=== PATIENT | male | born 1965 | race Caucasian/White ===

== ENCOUNTER 2020-10-13 10:52 | Emergency (ER) | payer BC ==
--- NOTE | 2020-10-13 10:54 | ERPHSYRPT ---
- History of Present Illness Time Seen by Provider: 10/13/20 10:54 Source: patient Exam Limitations: no limitations Physician History: This is a 55-year-old white male who has had symptoms of shortness of breath cough and headache for approximately 2 weeks. He tested positive for COVID-19 approximately 1 week ago and he continues to have a mild cough, moderate headach e and moderate shortness of breath. He had a pulse oximeter on at home and at night he is tended to drop down into the high 70s to low 80s but it probably returned to approximately 95 to 96% on room air at rest. Patient denies chest pain. He denies nausea vomiting or diarrhea. He is concerned because his symptoms are not improving. Timing/Duration: week(s) (two) Severity of Dyspnea-Max: moderate Severity of Dyspnea-Current: moderate Possible Cause: no prior episodes Modifying Factors: Improves With: activity, coughing, exertion Associated Symptoms: cough Travel Risk - International Travel Have you traveled outside of the country in past 3 weeks: No - Coronavirus Screening Are you exhibiting any of the following symptoms?: Yes Symptoms: Cough: New Onset, Shortness of Breath, Headaches/Body Aches/Fatigue Close contact with a COVID-19 positive Pt in past 14-21 Days: Yes - Review of Systems Constitutional: No Symptoms Eyes: No Symptoms Ears, Nose, & Throat: No Symptoms Respiratory: Cough, Dyspnea Cardiac: No Symptoms Abdominal/Gastrointestinal: No Symptoms Genitourinary Symptoms: No Symptoms Musculoskeletal: No Symptoms Skin: No Symptoms Neurological: Headache Psychological: No Symptoms Endocrine: No Symptoms Hematologic/Lymphatic: No Symptoms Immunological/Allergic: No Symptoms All Other Systems: Reviewed and Negative - Past Medical History Pertinent Past Medical History: Yes Neurological History: No Pertinent History ENT History: No Pertinent History Cardiac History: No Pertinent History Respiratory History: No Pertinent History Endocrine Medical History: No Pertinent History Musculoskeletal History: No Pertinent History GI Medical History: No Pertinent History History: No Pertinent History Psycho-Social History: No Pertinent History Male Reproductive Disorders: No Pertinent History - Past Surgical History Past Surgical History: No Neuro Surgical History: No Pertinent History Cardiac: No Pertinent History Respiratory: No Pertinent History Gastrointestinal: No Pertinent History Genitourinary: No Pertinent History Musculoskeletal: No Pertinent History Male Surgical History: No Pertinent History - Nursing Vital Signs Nursing Vital Signs: Initial Vital Signs Pulse Rate 93 H 10/13/20 12:13 Respiratory Rate 18 10/13/20 12:13 Blood Pressure 132/87 10/13/20 12:13 O2 Sat by Pulse Oximetry 94 L 10/13/20 12:13 Pain Scale Pain Intensity 0 - Physical Exam General Appearance: mild distress, alert, anxiety Eye Exam: PERRL/EOMI, eyes nml inspection Ears, Nose, Throat Exam: hearing grossly normal, normal ENT inspection Neck Exam: normal inspection, non-tender, supple, full range of motion Respiratory Exam: normal breath sounds, lungs clear, respiratory distress (Mild), airway intact, No chest tenderness Cardiovascular/Chest Exam: normal heart sounds, regular rate/rhythm, normal peripheral pulses Abdominal/Gastrointestinal Exam: soft, normal bowel sounds, No tenderness Rectal Exam: not done Extremity Exam: non-tender, normal range of motion, normal inspection, normal capillary refill, no calf tenderness, no pedal edema, pelvis stable Neurologic Exam: alert, oriented x 3, cooperative, 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, normal mood/affect, nml cerebellar function, nml station & gait, sensation nml Skin Exam: normal color, warm, dry Lymphatic Exam: No adenopathy SpO2 Interpretation: normal O2 Delivery: Room Air - Course Nursing assessment & vital signs reviewed: Yes EKG Interpreted by Me: RATE (101), Sinus Tach, NORMAL AXIS, NORMAL INTERVALS, NORMAL QRS, NORMAL ST-T Ordered Tests: Active Orders 24 hr Category Date Time Status Keno Clerk STAT Care 10/13/20 11:10 Active EKG-ER Only STAT Care 10/13/20 11:09 Active IV Insertion STAT Care 10/13/20 11:09 Active Isolation, Initiate & Maintain STAT Care 10/13/20 11:10 Active Pulse Oximetry (ED) STAT Care 10/13/20 11:09 Active CHEST 1 VIEW (PORTABLE) Stat Exams 10/13/20 11:09 Completed CHEST WITH CONTRAST [CT] Stat Exams 10/13/20 12:48 Completed CBC W DIFF Routine Lab 10/13/20 11:30 Completed CMP Routine Lab 10/13/20 11:30 Completed D-DIMER QUANTITATIVE Stat Lab 10/13/20 12:24 Completed Ferritin Stat Lab 10/13/20 Completed INFLUENZA A+B KARY Stat Lab 10/13/20 11:09 Completed LDH-LACTATE DEHYDROGENASE Routine Lab 10/13/20 11:30 Completed Lactic Acid Stat Lab 10/13/20 11:09 Completed MAGNESIUM Routine Lab 10/13/20 11:30 Completed Manual Differential NC Routine Lab 10/13/20 11:30 Completed Camas Screen Stat Lab 10/13/20 Completed TROPONIN Q3H Lab 10/13/20 11:30 Completed TROPONIN Q3H Lab 10/13/20 15:30 Ordered TROPONIN Q3H Lab 10/13/20 18:30 Ordered TROPONIN Q3H Lab 10/13/20 21:30 Ordered TROPONIN Q3H Lab 10/14/20 00:30 Ordered UA W/RFX UR CULTURE Stat Lab 10/13/20 14:05 Completed Medication Summary Generic Name Dose Route Start Last Admin Trade Name Freq PRN Reason Stop Dose Admin Sodium Chloride 1,000 mls @ 100 mls/hr 10/13/20 11:15 10/13/20 11:32 Sodium Chloride 0.9% 1000 Ml IV 11/12/20 11:14 100 mls/hr .Q10H SAQIB Administration Discontinued Medications Generic Name Dose Route Start Last Admin Trade Name Freq PRN Reason Stop Dose Admin Hydrocodone Bitart/Acetaminophen 15 ml 10/13/20 11:13 10/13/20 11:32 Hydrocodone-Acetamin 2.5-108/5 Ml Solution PO 10/13/20 11:14 15 ml STAT STA Administration Hydrocodone Bitart/Acetaminophen Confirm 10/13/20 11:27 Hydrocodone-Acetamin 2.5-108/5 Ml Solution Administered 10/13/20 11:28 Dose 15 ml .ROUTE .STK-MED ONE Dexamethasone Sodium Phosphate 8 mg 10/13/20 11:12 10/13/20 11:32 Decadron 4 Mg Inj IV 10/13/20 11:13 8 mg STAT ONE Administration Dexamethasone Sodium Phosphate Confirm 10/13/20 11:27 Decadron 10mg Inj. Administered 10/13/20 11:28 Dose 10 mg .ROUTE .STK-MED ONE Lab/Rad Data: Laboratory Result Diagrams 10/13/20 11:30 10/13/20 11:30 Laboratory Results 10/13/20 10/13/20 10/13/20 Range/Units Unknown Unknown 14:05 WBC (4.0-10.5) K/mm3 RBC (4.1-5.6) M/mm3 Hgb (12.5-18.0) gm/dl Hct (42-50) % MCV (78-100) fl MCH (26-32) pg MCHC (32-36) g/dl RDW (11.5-14.0) % Plt Count (150-450) K/mm3 MPV (7.5-11.0) fl Absolute Granulocytes (1.4-6.9) Segmented Neutrophils (36.-66.) % Lymphocytes (Manual) (24-44) % Monocytes (Manual) (0.0-12.0) % Eosinophils (Manual) (0.00-3.0) % Platelet Estimate (NORMAL) RBC Morphology D-Dimer (215-500) ng/mL Sodium (137-145) mmol/L Potassium (3.5-5.1) mmol/L Chloride (98-107) mmol/L Carbon Dioxide (22-30) mmol/L Anion Gap (5-15) MEQ/L BUN (9-20) mg/dL Creatinine (0.66-1.25) mg/dL Estimated GFR ML/MIN Glucose (74-106) mg/dL Lactic Acid (0.4-2.0) Calcium (8.4-10.2) mg/dL Magnesium (1.6-2.3) mg/dL Ferritin 721 H (17.9-464) ng/mL Total Bilirubin (0.2-1.3) mg/dL AST (17-59) U/L ALT (0-50) U/L Alkaline Phosphatase (38-126) U/L Lactate Dehydrogenase (120-246) U/L Troponin I (0.000-0.034) ng/mL Serum Total Protein (6.3-8.2) g/dL Albumin (3.5-5.0) g/dL Urine Color YELLOW (YELLOW) Urine Appearance CLEAR (CLEAR) Urine pH 5.0 (5-6) Ur Specific [place] 1.044 (1.005-1.025) Urine Protein 100 (Negative) Urine Ketones TRACE (NEGATIVE) Urine Blood NEGATIVE (0-5) [place]/ul Urine Nitrite NEGATIVE (NEGATIVE) Urine Bilirubin NEGATIVE (NEGATIVE) Urine Urobilinogen 2 (0-1) mg/dL Ur Leukocyte Esterase NEGATIVE (NEGATIVE) Urine WBC (Auto) NONE (0-5) /HPF Urine RBC (Auto) NONE (0-2) /HPF U Epithel Cells (Auto) NONE (FEW) /HPF Urine Bacteria (Auto) NONE (NEGATIVE) /HPF Urine Mucus (Auto) SLIGHT (NEGATIVE) /HPF Urine Culture Reflexed NO (NO) Urine Glucose >=500 (NEGATIVE) mg/dL Monoscreen NEGATIVE (Negative) Influenza Type A Ag (NEGATIVE) Influenza Type B Ag (NEGATIVE) Group A Strep Antibody (NEGATIVE) 10/13/20 10/13/20 10/13/20 Range/Units 12:24 11:30 11:30 WBC (4.0-10.5) K/mm3 RBC (4.1-5.6) M/mm3 Hgb (12.5-18.0) gm/dl Hct (42-50) % MCV (78-100) fl MCH (26-32) pg MCHC (32-36) g/dl RDW (11.5-14.0) % Plt Count (150-450) K/mm3 MPV (7.5-11.0) fl Absolute Granulocytes (1.4-6.9) Segmented Neutrophils (36.-66.) % Lymphocytes (Manual) (24-44) % Monocytes (Manual) (0.0-12.0) % Eosinophils (Manual) (0.00-3.0) % Platelet Estimate (NORMAL) RBC Morphology D-Dimer 785 H* (215-500) ng/mL Sodium 134 L (137-145) mmol/L Potassium 4.0 (3.5-5.1) mmol/L Chloride 101 (98-107) mmol/L Carbon Dioxide 26 (22-30) mmol/L Anion Gap 10.4 (5-15) MEQ/L BUN 13 (9-20) mg/dL Creatinine 0.56 L (0.66-1.25) mg/dL Estimated GFR > 60.0 ML/MIN Glucose 331 H (74-106) mg/dL Lactic Acid (0.4-2.0) Calcium 10.1 (8.4-10.2) mg/dL Magnesium 2.1 (1.6-2.3) mg/dL Ferritin (17.9-464) ng/mL Total Bilirubin 0.70 (0.2-1.3) mg/dL AST 34 (17-59) U/L ALT 55 H (0-50) U/L Alkaline Phosphatase 95 (38-126) U/L Lactate Dehydrogenase 199 (120-246) U/L Troponin I < 0.012 (0.000-0.034) ng/mL Serum Total Protein 8.1 (6.3-8.2) g/dL Albumin 4.0 (3.5-5.0) g/dL Urine Color (YELLOW) Urine Appearance (CLEAR) Urine pH (5-6) Ur Specific [place] (1.005-1.025) Urine Protein (Negative) Urine Ketones (NEGATIVE) Urine Blood (0-5) Cal[place]/ul Urine Nitrite (NEGATIVE) Urine Bilirubin (NEGATIVE) Urine Urobilinogen (0-1) mg/dL Ur Leukocyte Esterase (NEGATIVE) Urine WBC (Auto) (0-5) /HPF Urine RBC (Auto) (0-2) /HPF U Epithel Cells (Auto) (FEW) /HPF Urine Bacteria (Auto) (NEGATIVE) /HPF Urine Mucus (Auto) (NEGATIVE) /HPF Urine Culture Reflexed (NO) Urine Glucose (NEGATIVE) mg/dL Monoscreen (Negative) Influenza Type A Ag (NEGATIVE) Influenza Type B Ag (NEGATIVE) Group A Strep Antibody (NEGATIVE) 10/13/20 10/13/20 10/13/20 Range/Units 11:30 11:11 11:09 WBC 8.9 (4.0-10.5) K/mm3 RBC 4.63 (4.1-5.6) M/mm3 Hgb 14.4 (12.5-18.0) gm/dl Hct 42.0 (42-50) % MCV 90.7 (78-100) fl MCH 31.1 (26-32) pg MCHC 34.3 (32-36) g/dl RDW 11.5 (11.5-14.0) % Plt Count 325 (150-450) K/mm3 MPV 9.1 (7.5-11.0) fl Absolute Granulocytes 6.15 (1.4-6.9) Segmented Neutrophils 69 H (36.-66.) % Lymphocytes (Manual) 22 L (24-44) % Monocytes (Manual) 7 (0.0-12.0) % Eosinophils (Manual) 2 (0.00-3.0) % Platelet Estimate NORMAL (NORMAL) RBC Morphology NORMAL D-Dimer (215-500) ng/mL Sodium (137-145) mmol/L Potassium (3.5-5.1) mmol/L Chloride (98-107) mmol/L Carbon Dioxide (22-30) mmol/L Anion Gap (5-15) MEQ/L BUN (9-20) mg/dL Creatinine (0.66-1.25) mg/dL Estimated GFR ML/MIN Glucose (74-106) mg/dL Lactic Acid 1.5 (0.4-2.0) Calcium (8.4-10.2) mg/dL Magnesium (1.6-2.3) mg/dL Ferritin (17.9-464) ng/mL Total Bilirubin (0.2-1.3) mg/dL AST (17-59) U/L ALT (0-50) U/L Alkaline Phosphatase (38-126) U/L Lactate Dehydrogenase (120-246) U/L Troponin I (0.000-0.034) ng/mL Serum Total Protein (6.3-8.2) g/dL Albumin (3.5-5.0) g/dL Urine Color (YELLOW) Urine Appearance (CLEAR) Urine pH (5-6) Ur Specific [place] (1.005-1.025) Urine Protein (Negative) Urine Ketones (NEGATIVE) Urine Blood (0-5) Cali/ul Urine Nitrite (NEGATIVE) Urine Bilirubin (NEGATIVE) Urine Urobilinogen (0-1) mg/dL Ur Leukocyte Esterase (NEGATIVE) Urine WBC (Auto) (0-5) /HPF Urine RBC (Auto) (0-2) /HPF U Epithel Cells (Auto) (FEW) /HPF Urine Bacteria (Auto) (NEGATIVE) /HPF Urine Mucus (Auto) (NEGATIVE) /HPF Urine Culture Reflexed (NO) Urine Glucose (NEGATIVE) mg/dL Monoscreen (Negative) Influenza Type A Ag (NEGATIVE) Influenza Type B Ag (NEGATIVE) Group A Strep Antibody NOT DETECTED (NEGATIVE) 10/13/20 Range/Units 11:09 WBC (4.0-10.5) K/mm3 RBC (4.1-5.6) M/mm3 Hgb (12.5-18.0) gm/dl Hct (42-50) % MCV (78-100) fl MCH (26-32) pg MCHC (32-36) g/dl RDW (11.5-14.0) % Plt Count (150-450) K/mm3 MPV (7.5-11.0) fl Absolute Granulocytes (1.4-6.9) Segmented Neutrophils (36.-66.) % Lymphocytes (Manual) (24-44) % Monocytes (Manual) (0.0-12.0) % Eosinophils (Manual) (0.00-3.0) % Platelet Estimate (NORMAL) RBC Morphology D-Dimer (215-500) ng/mL Sodium (137-145) mmol/L Potassium (3.5-5.1) mmol/L Chloride (98-107) mmol/L Carbon Dioxide (22-30) mmol/L Anion Gap (5-15) MEQ/L BUN (9-20) mg/dL Creatinine (0.66-1.25) mg/dL Estimated GFR ML/MIN Glucose (74-106) mg/dL Lactic Acid (0.4-2.0) Calcium (8.4-10.2) mg/dL Magnesium (1.6-2.3) mg/dL Ferritin (17.9-464) ng/mL Total Bilirubin (0.2-1.3) mg/dL AST (17-59) U/L ALT (0-50) U/L Alkaline Phosphatase (38-126) U/L Lactate Dehydrogenase (120-246) U/L Troponin I (0.000-0.034) ng/mL Serum Total Protein (6.3-8.2) g/dL Albumin (3.5-5.0) g/dL Urine Color (YELLOW) Urine Appearance (CLEAR) Urine pH (5-6) Ur Specific [place] (1.005-1.025) Urine Protein (Negative) Urine Ketones (NEGATIVE) Urine Blood (0-5) Cal[place]/ul Urine Nitrite (NEGATIVE) Urine Bilirubin (NEGATIVE) Urine Urobilinogen (0-1) mg/dL Ur Leukocyte Esterase (NEGATIVE) Urine WBC (Auto) (0-5) /HPF Urine RBC (Auto) (0-2) /HPF U Epithel Cells (Auto) (FEW) /HPF Urine Bacteria (Auto) (NEGATIVE) /HPF Urine Mucus (Auto) (NEGATIVE) /HPF Urine Culture Reflexed (NO) Urine Glucose (NEGATIVE) mg/dL Monoscreen (Negative) Influenza Type A Ag NEGATIVE (NEGATIVE) Influenza Type B Ag NEGATIVE (NEGATIVE) Group A Strep Antibody (NEGATIVE) - Progress Air Movement: fair Progress Note: 10/13/20 13:04 Chest x-ray shows bilateral, bibasilar hazy infiltrates. There is a right midlung irregular opacity.? Organizing pneumonia, versus subsegmental atelectasis, versus mass 10/13/20 15:22 CTA of chest reveals bibasilar COVID-19 infiltrates without any organized pneumonia. There is no mass as well. Medical screening exam: We walked the patient up and down the [place] and he tolerated that well with no significant shortness of breath. His oxygen saturations dropped lowest was 92% on room air. He was in the 94-96 range on room air the majority of the time. Patient states he is comfortable going home. He no longer has a headache present. He has no chest pain he has no abdominal pain. I reviewed the patient's x-ray and CAT scan findings as well as his laboratory work-up. I gave him the option of being placed in observation overnight here or going home. I think he would do well at home. I told him I would write him a prescription for low-dose prednisone for a few days as well as an albuterol inhaler and hydrocodone elixir. He wants to go home. 10/13/20 15:23 Blood Culture(s) Obtained: Yes Antibiotics given: No Counseled pt/family regarding: lab results, diagnosis, rad results - Departure Departure Disposition: Home Clinical Impression: COVID-19 virus infection Condition: Stable Critical Care Time: No Referrals: DOCTOR,NO FAMILY [Primary Care Provider] - Additional Instructions: Drink plenty of fluids. Return to the emergency department for worsening symptoms. Take your medications as prescribed. Prescriptions: Hydrocodone/Acetaminophen [Hydrocodone-Acetamn 7.5-325/15] 15 ml PO Q8H PRN PRN #180 solution MDD 45 ml PRN Reason: Cough Prednisone 10 mg [Deltasone 10 mg] 10 mg PO TID #12 tablet Prednisone 5 mg [Deltasone 5 mg] 5 mg PO BID #6 tablet Albuterol 8 gm Mdi Hfa [Ventolin Hfa MDI] 8 gm IH Q4H #1 [email or web address]
[2020-10-13] MEDS ORDERED: Decadron 4 MG INJ IV ONE (11:12)
[2020-10-13] MEDS ORDERED: HYDROCODONE-ACETAMIN 2.5-108/5 ML SOLUTION PO STA (11:13)
[2020-10-13] MEDS ORDERED: Sodium Chloride 0.9% 1000 ML 1,000 ML IV SCH (11:15)
[2020-10-13] MEDS ORDERED: DECADRON 10MG INJ. ONE (11:27)
[2020-10-13] MEDS ORDERED: HYDROCODONE-ACETAMIN 2.5-108/5 ML SOLUTION ONE (11:27)
[2020-10-13] MEDS ORDERED: Sodium Chloride 0.9% 1000 ML 1,000 ML ONE (11:28)
[2020-10-13 12:01] LABS: Hemoglobin 14.4 gm/dl (12.5-18.0); Mean Cell Volume 90.7 fl (78-100); Mean Corpuscular Hemoglobin 31.1 pg (26-32); Mean Corpuscular Hgb Concent. 34.3 g/dl (32-36); Mean Platelet Volume 9.1 fl (7.5-11.0); Platelet Count 325 K/mm3 (150-450); Red Blood Count 4.63 M/mm3 (4.1-5.6); Red Cell Distribution Width 11.5 % (11.5-14.0); White Blood Count 8.9 K/mm3 (4.0-10.5)
--- NOTE | 2020-10-13 12:04 | XRAY ---
Indication: Short of breath. Positive Covid 19. Comparison: None Portable chest demonstrates bilateral hazy airspace disease greatest in both lung bases with small left effusion. Also right midlung irregular opacity either organizing pneumonia versus subsegmental atelectasis versus mass. Remaining heart and bony thorax unremarkable.
[2020-10-13 12:08] LABS: BLOOD UREA NITROGEN 13 mg/dL (9-20); CHLORIDE 101 mmol/L (98-107); Calcium 10.1 mg/dL (8.4-10.2); Carbon Dioxide 26 mmol/L (22-30); Creatinine 1 0.56 mg/dL (0.66-1.25); EST GLOMERULAR FILTRATION RATE > 60.0 ML/MIN; Glucose 331 mg/dL (74-106); SODIUM 134 mmol/L (137-145); Total Protein 8.1 g/dL (6.3-8.2)
[2020-10-13 12:09] LABS: ALKALINE PHOSPHATASE 95 U/L (38-126); ANION GAP 10.4 MEQ/L (5-15); LDH-LACTATE DEHYDROGENASE 199 U/L (120-246); MAGNESIUM 2.1 mg/dL (1.6-2.3); SGOT/AST 34 U/L (17-59); SGPT/ALT 55 U/L (0-50)
[2020-10-13 12:34] LABS: INFLUENZA A NEGATIVE (NEGATIVE); INFLUENZA B NEGATIVE (NEGATIVE)
[2020-10-13 12:44] LABS: Eosinophil 2 % (0.00-3.0); Lymphocytes 22 % (24-44); Monocyte 7 % (0.0-12.0); Neutrophils 69 % (36.-66.); Total Cells Counted 100
[2020-10-13 12:45] LABS: Platelet Estimate NORMAL (NORMAL)
[2020-10-13 12:46] LABS: Absolute Neutrophil Ct (ANC) 6.15 (1.4-6.9)
--- NOTE | 2020-10-13 14:05 | XRAY ---
Indication: Chest pain and short of breath. Elevated d-dimer. Multiple contiguous axial images obtained through the chest using 80 cc Isovue 370 contrast and PE protocol. Comparison: None There is good opacification of the pulmonary arteries to include the lobar and segmental branches. No pulmonary embolus. Heart is not enlarged. Aorta is normal course and caliber. No pathologic mediastinal/hilar lymphadenopathy. Lungs demonstrates diffuse bilateral airspace disease, right lung greater than left. No consolidation/effusion. Bony thorax intact. Limited upper abdomen including adrenal glands are unremarkable. Impression: 1. Negative pulmonary embolus. 2. Diffuse bilateral airspace disease without consolidation/effusion.
[2020-10-13 14:06] VITALS: BP 142/89
[2020-10-13 14:20] LABS: Appearance CLEAR (CLEAR); Bilirubin NEGATIVE (NEGATIVE); Blood NEGATIVE Ery/ul (0-5); Glucose >=500 mg/dL (NEGATIVE); Ketones TRACE (NEGATIVE); Leukocyte Esterase NEGATIVE (NEGATIVE); Mucus SLIGHT /HPF (NEGATIVE); Nitrite NEGATIVE (NEGATIVE); Protein,Urine Dip 100 (Negative); Specific Gravity 1.044 (1.005-1.025); Urobilinogen 2 mg/dL (0-1)
[2020-10-13 15:05] VITALS: PULSE 87; O2SAT 94
== END 2020-10-13 16:00 | disposition critical access hospital (66) ==
LOC: ED 10:52
DX: R91.8 Other nonspecific abnormal finding of lung field (principal)
CPT/HCPCS: 36000; 36415; 71045; 71260; 80053; 81001; 82728; 83605; 83615; 83735; 84484; 85025; 85379; 86308; 87400; 87651; 93005; 93041; 94760; 96360; 96361; 96374; 99285; J1100; A9270-GY

== ENCOUNTER 2020-10-23 15:40 | Observation (INO) | payer BC ==
[2020-10-23 16:36] LABS: Absolute Neutrophil Ct (ANC) 4.82 (1.4-6.9); BASOPHIL % 0.5 % (0.0-0.4); Basophil (Absolute #) 0.04 (0-0.4); Eosinophil % 0.5 % (0.00-5.0); Eosinophil (Absolute #) 0.04 (0-0.5); Hematocrit 44.3 % (42-50); Hemoglobin 15.5 gm/dl (12.5-18.0); Lymphocyte (Absolute #) 2.86 (1.0-4.6); Lymphocytes % 33.3 % (24.0-44.0); Mean Cell Volume 89.3 fl (78-100); Mean Corpuscular Hemoglobin 31.3 pg (26-32); Mean Platelet Volume 9.3 fl (7.5-11.0); Monocyte (Absolute #) 0.82 (0.0-1.3); Monocytes % 9.6 % (0.0-12.0); Neutrophil % 56.1 % (36.0-66.0); Platelet Count 335 K/mm3 (150-450); Red Blood Count 4.96 M/mm3 (4.1-5.6); Red Cell Distribution Width 12.2 % (11.5-14.0); White Blood Count 8.6 K/mm3 (4.0-10.5)
[2020-10-23] MEDS: Sodium Chloride 0.9% 1000 ML 1,000 ML IV SCH (16:45)
[2020-10-23 16:59] LABS: ALBUMIN 4.2 g/dL (3.5-5.0); ALKALINE PHOSPHATASE 105 U/L (38-126); ANION GAP 16.6 MEQ/L (5-15); BLOOD UREA NITROGEN 12 mg/dL (9-20); CHLORIDE 99 mmol/L (98-107); Calcium 9.6 mg/dL (8.4-10.2); Carbon Dioxide 19 mmol/L (22-30); Creatinine 1 0.56 mg/dL (0.66-1.25); EST GLOMERULAR FILTRATION RATE > 60.0 ML/MIN; Glucose 184 mg/dL (74-106); MAGNESIUM 1.7 mg/dL (1.6-2.3); Potassium 3.6 mmol/L (3.5-5.1); SGOT/AST 22 U/L (17-59); SGPT/ALT 20 U/L (0-50); SODIUM 131 mmol/L (137-145); Total Protein 8.2 g/dL (6.3-8.2)
--- NOTE | 2020-10-23 17:08 | XRAY ---
Indication: Cough and tired. Positive Covid 19. Comparison: October 13, 2020. Portable chest unchanged again demonstrating diffuse bilateral airspace disease right greater than left. Heart is not enlarged. No new cardiopulmonary abnormalities.
--- NOTE | 2020-10-23 17:20 | ERPHSYRPT ---
- History of Present Illness Time Seen by Provider: 10/23/20 15:50 Source: patient Patient Subjective Stated Complaint: Pt c/o of cough, headache due to Covid, pt was diagnosed on 10/05/20 Triage Nursing Assessment: Pt brought self to the ER, tachycardic, cough with tightness, pulses normal, headache, skin n/w/d, rates pain 01/03, reports that his oxygen went to 88% when he walked from the parking lot into his work today, doesn't appear to be in any distress Physician History: Patient is a 55-year-old male history of COVID-19 diagnosed on October 05 presents to our ED with complaints of cough shortness of breath and a headache. Patient states he checked his O2 sat at home and it was 88%. Patient feels progressively fatigued. No fever. No nausea or vomiting. No rash. No chest pain symptoms are progressive. Symptoms are moderate in intensity. No specific worsening or improving factors. Patient concerned he may have pneumonia. Timing/Duration: week(s) (2 weeks) Severity: moderate Modifying Factors: Improves With: movement Associated Symptoms: No nausea, No vomiting Allergies/Adverse Reactions: No Known Drug Allergies Allergy (Verified 10/23/20 15:53) Home Medications: Atorvastatin Calcium 80 mg PO DAILY 10/23/20 [History] Canagliflozin [Invokana] 300 mg PO DAILY 10/23/20 [History] Cholecalciferol (Vitamin D3) [Vitamin D3] 2,000 unit PO DAILY 10/23/20 [History] Fenofibrate 160 mg PO DAILY 10/23/20 [History] Icosapent Ethyl [Vascepa] 1 gm PO DAILY 10/23/20 [History] Lisinopril 5 mg [Zestril 5 MG] 5 mg PO DAILY 10/23/20 [History] Meloxicam [Mobic] 15 mg PO DAILY 10/23/20 [History] PARoxetine HCl [Paxil] 10 mg PO DAILY 10/23/20 [History] Sitagliptin Phos/Metformin HCl [Janumet 50-1,000 mg Tablet] 1 each PO DAILY 10/23/20 [History] Travel Risk - International Travel Have you traveled outside of the country in past 3 weeks: No - Coronavirus Screening Are you exhibiting any of the following symptoms?: Yes Symptoms: Cough: New Onset Close contact with a COVID-19 positive Pt in past 14-21 Days: Yes - Review of Systems Constitutional: No Symptoms, No Fever, No Chills Eyes: No Symptoms Ears, Nose, & Throat: No Symptoms Respiratory: No Symptoms, No Cough, No Dyspnea Cardiac: No Symptoms, No Chest Pain, No Edema, No Syncope Abdominal/Gastrointestinal: No Symptoms, No Abdominal Pain, No Nausea, No Vomiting, No Diarrhea Genitourinary Symptoms: No Symptoms, No Dysuria Musculoskeletal: No Symptoms, No Back Pain, No Neck Pain Skin: No Symptoms, No Rash Neurological: No Symptoms, No Dizziness, No Focal Weakness, No Sensory Changes Psychological: No Symptoms Endocrine: No Symptoms Hematologic/Lymphatic: No Symptoms Immunological/Allergic: No Symptoms All Other Systems: Reviewed and Negative - Past Medical History Pertinent Past Medical History: Yes Neurological History: No Pertinent History ENT History: No Pertinent History Cardiac History: No Pertinent History Respiratory History: No Pertinent History Endocrine Medical History: No Pertinent History Musculoskeletal History: No Pertinent History GI Medical History: No Pertinent History History: No Pertinent History Psycho-Social History: No Pertinent History Male Reproductive Disorders: No Pertinent History Other Medical History: hx of palpitations - Past Surgical History Past Surgical History: No Neuro Surgical History: No Pertinent History Cardiac: No Pertinent History Respiratory: No Pertinent History Gastrointestinal: No Pertinent History Genitourinary: No Pertinent History Musculoskeletal: No Pertinent History Male Surgical History: No Pertinent History - Social History Smoking Status: Never smoker Exposure to second hand smoke: No Patient Lives Alone: No - Nursing Vital Signs Nursing Vital Signs: Initial Vital Signs Temperature 97.9 F 10/23/20 15:41 Pulse Rate 114 H 10/23/20 15:41 Respiratory Rate 25 H 10/23/20 15:41 Blood Pressure 117/86 10/23/20 15:41 O2 Sat by Pulse Oximetry 94 L 10/23/20 15:41 Pain Scale Pain Intensity 3 - Physical Exam General Appearance: no apparent distress, alert Eye Exam: PERRL/EOMI, eyes nml inspection Ears, Nose, Throat Exam: normal ENT inspection, TMs normal, pharynx normal, moist mucous membranes Neck Exam: normal inspection, non-tender, supple, full range of motion Respiratory Exam: lungs clear, airway intact (Diminished breath sounds on the right more than left. No respiratory distress. Airway intact), diminished breath sounds, No respiratory distress, No wheezing Cardiovascular Exam: regular rate/rhythm, normal heart sounds, normal peripheral pulses Gastrointestinal/Abdomen Exam: soft, normal bowel sounds, No tenderness, No mass Back Exam: normal inspection, normal range of motion, No CVA tenderness, No vertebral tenderness Extremity Exam: normal inspection, normal range of motion, pelvis stable Neurologic Exam: alert, oriented x 3, cooperative, normal mood/affect, nml cerebellar function, nml station & gait, sensation nml, No motor deficits Skin Exam: normal color, warm, dry, No rash Lymphatic Exam: No adenopathy SpO2 Interpretation: normal SpO2: 94 O2 Delivery: Room Air - Course Nursing assessment & vital signs reviewed: Yes - Radiology Exams Chest X-ray Interpretation: Teleradiologist Report (Diffuse bilateral airspace disease right greater than left) - CT Exams Chest CT Interpretation: Tele-radiologist Report (Of PE compared to 10/13/2020. Again bilateral airspace disease right greater than left. Nothing new) Ordered Tests: Active Orders 24 hr Category Date Time Status Clean Energy Policy Analyst STAT Care 10/23/20 16:27 Active EKG-ER Only STAT Care 10/23/20 16:26 Active IV Insertion STAT Care 10/23/20 16:26 Active Pulse Oximetry (ED) STAT Care 10/23/20 16:26 Active CHEST 1 VIEW (PORTABLE) Stat Exams 10/23/20 16:27 Completed CHEST WITH CONTRAST [CT] Stat Exams 10/23/20 17:14 Taken CBC W DIFF Stat Lab 10/23/20 16:26 Completed CMP Stat Lab 10/23/20 16:00 Completed D-DIMER QUANTITATIVE Stat Lab 10/23/20 16:00 Completed MAGNESIUM Stat Lab 10/23/20 16:00 Completed TROPONIN Q3H Lab 10/23/20 16:00 Completed TROPONIN Q3H Lab 10/23/20 19:30 Ordered TROPONIN Q3H Lab 10/23/20 22:30 Ordered TROPONIN Q3H Lab 10/24/20 01:30 Ordered TROPONIN Q3H Lab 10/24/20 04:30 Ordered Urine Triage Profile Stat Lab 10/23/20 16:27 Ordered Transfer Order Routine Transfer 10/23/20 Ordered Medication Summary Generic Name Dose Route Start Last Admin Trade Name Freq PRN Reason Stop Dose Admin Sodium Chloride 1,000 mls @ 100 mls/hr 10/23/20 16:30 10/23/20 16:45 Sodium Chloride 0.9% 1000 Ml IV 11/22/20 16:29 100 mls/hr .Q10H SAQIB Administration Remdesivir 200 mg/ Sodium 250 mls @ 125 mls/hr 10/23/20 18:33 Chloride IV 10/23/20 20:32 ONCE ONE Discontinued Medications Generic Name Dose Route Start Last Admin Trade Name Isaura PRN Reason Stop Dose Admin Dexamethasone Sodium Phosphate 6 mg 10/23/20 18:17 10/23/20 18:28 Decadron 10mg Inj. IV 10/23/20 18:18 6 mg STAT ONE Administration Dexamethasone Sodium Phosphate Confirm 10/23/20 18:27 Decadron 10mg Inj. Administered 10/23/20 18:28 Dose 10 mg .ROUTE .STK-MED ONE Lab/Rad Data: Laboratory Result Diagrams 10/23/20 16:26 10/23/20 16:00 Laboratory Results 10/23/20 10/23/20 10/23/20 Range/Units 16:26 16:00 16:00 WBC 8.6 (4.0-10.5) K/mm3 RBC 4.96 (4.1-5.6) M/mm3 Hgb 15.5 (12.5-18.0) gm/dl Hct 44.3 (42-50) % MCV 89.3 (78-100) fl MCH 31.3 (26-32) pg MCHC 35.0 (32-36) g/dl RDW 12.2 (11.5-14.0) % Plt Count 335 (150-450) K/mm3 MPV 9.3 (7.5-11.0) fl Gran % 56.1 (36.0-66.0) % Eos # (Auto) 0.04 (0-0.5) Absolute Lymphs (auto) 2.86 (1.0-4.6) Absolute Monos (auto) 0.82 (0.0-1.3) Lymphocytes % 33.3 (24.0-44.0) % Monocytes % 9.6 (0.0-12.0) % Eosinophils % 0.5 (0.00-5.0) % Basophils % 0.5 (0.0-0.4) % Absolute Granulocytes 4.82 (1.4-6.9) Basophils # 0.04 (0-0.4) D-Dimer 574 H* (215-500) ng/mL Sodium (137-145) mmol/L Potassium (3.5-5.1) mmol/L Chloride (98-107) mmol/L Carbon Dioxide (22-30) mmol/L Anion Gap (5-15) MEQ/L BUN (9-20) mg/dL Creatinine (0.66-1.25) mg/dL Estimated GFR ML/MIN Glucose (74-106) mg/dL Calcium (8.4-10.2) mg/dL Magnesium (1.6-2.3) mg/dL Total Bilirubin (0.2-1.3) mg/dL AST (17-59) U/L ALT (0-50) U/L Alkaline Phosphatase (38-126) U/L Troponin I < 0.012 (0.000-0.034) ng/mL Serum Total Protein (6.3-8.2) g/dL Albumin (3.5-5.0) g/dL 10/23/20 Range/Units 16:00 WBC (4.0-10.5) K/mm3 RBC (4.1-5.6) M/mm3 Hgb (12.5-18.0) gm/dl Hct (42-50) % MCV (78-100) fl MCH (26-32) pg MCHC (32-36) g/dl RDW (11.5-14.0) % Plt Count (150-450) K/mm3 MPV (7.5-11.0) fl Gran % (36.0-66.0) % Eos # (Auto) (0-0.5) Absolute Lymphs (auto) (1.0-4.6) Absolute Monos (auto) (0.0-1.3) Lymphocytes % (24.0-44.0) % Monocytes % (0.0-12.0) % Eosinophils % (0.00-5.0) % Basophils % (0.0-0.4) % Absolute Granulocytes (1.4-6.9) Basophils # (0-0.4) D-Dimer (215-500) ng/mL Sodium 131 L (137-145) mmol/L Potassium 3.6 (3.5-5.1) mmol/L Chloride 99 (98-107) mmol/L Carbon Dioxide 19 L (22-30) mmol/L Anion Gap 16.6 H (5-15) MEQ/L BUN 12 (9-20) mg/dL Creatinine 0.56 L (0.66-1.25) mg/dL Estimated GFR > 60.0 ML/MIN Glucose 184 H (74-106) mg/dL Calcium 9.6 (8.4-10.2) mg/dL Magnesium 1.7 (1.6-2.3) mg/dL Total Bilirubin 0.80 (0.2-1.3) mg/dL AST 22 (17-59) U/L ALT 20 (0-50) U/L Alkaline Phosphatase 105 (38-126) U/L Troponin I (0.000-0.034) ng/mL Serum Total Protein 8.2 (6.3-8.2) g/dL Albumin 4.2 (3.5-5.0) g/dL - Progress Progress: improved Progress Note: 10/23/20 18:51 Patient's chest x-ray shows bilateral airspace disease worse on the right. Patient's right lung field is diminished. Patient ambulated in our ED. Patient became hypoxic and short of breath during a short walk. Patient saturations dropped to 92%. Case discussed with Dr. Foster our Covid doctor. We will admit patient for further evaluation and treatment. Patient received a dose of Decadron in our ED. Plan of care discussed with patient. He agrees to admission to [facility] for further evaluation and treatment. Counseled pt/family regarding: lab results, diagnosis, need for follow-up - Departure Departure Disposition: Observation Clinical Impression: COVID-19 virus infection, Hypoxia, Shortness of breath Condition: Stable Critical Care Time: No Referrals: DOCTOR,NO FAMILY [Primary Care Provider] -
[2020-10-23] MEDS ORDERED: DECADRON 10MG INJ. IV ONE (18:17)
[2020-10-23] MEDS ORDERED: DECADRON 10MG INJ. ONE (18:27)
[2020-10-23] MEDS ORDERED: REMDESIVIR 200 MG in Sodium Chloride 0.9% 250 ML 250 ML IV ONE (18:33)
[2020-10-23] MEDS ORDERED: REMDESIVIR IV ONE (20:26)
[2020-10-23] MEDS ORDERED: Sodium Chloride 0.9% 250 ML 250 ML IV ONE (20:26)
[2020-10-23] MEDS ORDERED: Ativan 1 MG PO PRN (22:00)
[2020-10-23] MEDS ORDERED: TYLENOL EXTRA STRENGTH 500 MG PO PRN (22:02)
[2020-10-23] MEDS ORDERED: REMDESIVIR 100 MG in Sodium Chloride 0.9% 100 ML IVPB 100 ML IV SCH (22:15)
[2020-10-24 05:54] LABS: BASOPHIL % 0.3 % (0.0-0.4); Basophil (Absolute #) 0.03 (0-0.4); Eosinophil (Absolute #) 0 (0-0.5); Hemoglobin 15.6 gm/dl (12.5-18.0); Lymphocyte (Absolute #) 1.92 (1.0-4.6); Lymphocytes % 18.5 % (24.0-44.0); Mean Cell Volume 90.2 fl (78-100); Mean Corpuscular Hemoglobin 30.6 pg (26-32); Mean Corpuscular Hgb Concent. 33.9 g/dl (32-36); Mean Platelet Volume 9.1 fl (7.5-11.0); Monocyte (Absolute #) 0.54 (0.0-1.3); Monocytes % 5.2 % (0.0-12.0); Platelet Count 373 K/mm3 (150-450); Red Cell Distribution Width 12.4 % (11.5-14.0); White Blood Count 10.4 K/mm3 (4.0-10.5)
[2020-10-24 06:10] LABS: ANION GAP 18.1 MEQ/L (5-15); BLOOD UREA NITROGEN 17 mg/dL (9-20); CHLORIDE 100 mmol/L (98-107); Calcium 9.4 mg/dL (8.4-10.2); EST GLOMERULAR FILTRATION RATE > 60.0 ML/MIN; Glucose 230 mg/dL (74-106); Potassium 4.1 mmol/L (3.5-5.1); SODIUM 130 mmol/L (137-145)
[2020-10-24 06:12] LABS: Carbon Dioxide 16 mmol/L (22-30)
[2020-10-24] MEDS ORDERED: Ventolin Hfa MDI IH SCH (07:30)
[2020-10-24] MEDS ORDERED: MEDICATION INTERVENTION MC SCH ×2 (07:30)
[2020-10-24] MEDS ORDERED: Glucophage 500 MG PO SCH (08:00)
[2020-10-24] MEDS: Sodium Chloride 0.9% 1000 ML 1,000 ML IV SCH (08:35)
--- NOTE | 2020-10-24 08:40 | XRAY ---
Indication: Cough and fatigue. Positive Covid 19. Multiple contiguous axial images obtained through the chest using 100 cc Isovue 370 contrast and PE protocol. Comparison: October 13, 2020. There is good opacification of the pulmonary arteries to includes the lobar and segmental branches. Again no pulmonary embolus. Heart is not enlarged. Aorta is normal in course and caliber. No pathologic mediastinal/hilar lymphadenopathy. Lungs again demonstrates diffuse bilateral airspace disease minimally improved. No new pleural parenchymal opacity or effusion. Bony thorax remains intact. Limited upper abdomen demonstrates incompletely visualized 4.7 cm left mid renal cyst. Impression: 1. Continued negative pulmonary embolus. 2. Again diffuse bilateral airspace disease minimally improved. 3. Incidental incompletely visualized left renal cyst.
[2020-10-24] MEDS ORDERED: ENOXAPARIN SODIUM SQ SCH (10:00)
[2020-10-24] MEDS ORDERED: NON-FORMULARY ITEM (Meloxicam [Mobic] 15 MG) PO SCH (10:00)
[2020-10-24] MEDS ORDERED: Zestril 5 MG PO SCH (10:00)
[2020-10-24] MEDS ORDERED: ICOSAPENT ETHYL 4 GM PO SCH (10:00)
[2020-10-24] MEDS ORDERED: NON-FORMULARY ITEM (Atorvastatin Calcium [Atorvastatin Calcium] 80 MG) PO SCH (10:00)
[2020-10-24] MEDS ORDERED: NON-FORMULARY ITEM (Cholecalciferol (Vitamin D3) [Vitamin D3] 2,000 UNIT) PO SCH (10:00)
[2020-10-24] MEDS ORDERED: Tricor 145 MG PO SCH (10:00)
[2020-10-24] MEDS ORDERED: NON-FORMULARY ITEM (Canagliflozin [Invokana] 300 MG) PO SCH (10:00)
[2020-10-24] MEDS ORDERED: MELOXICAM PO SCH (10:00)
[2020-10-24] MEDS ORDERED: NON-FORMULARY ITEM (Fenofibrate [Fenofibrate] 160 MG) PO SCH (10:00)
[2020-10-24] MEDS ORDERED: VITAMIN D PO SCH (10:00)
[2020-10-24 10:53] VITALS: O2SAT 94
[2020-10-24] MEDS ORDERED: VENTOLIN COMMON CANISTER IH SCH (11:00)
[2020-10-24 11:59] VITALS: BP 129/80; PULSE 98
[2020-10-24] MEDS ORDERED: LIPITOR 40MG PO SCH (22:00)
[2020-10-24] MEDS ORDERED: REMDESIVIR 100 MG in Sodium Chloride 0.9% 100 ML IVPB 100 ML IV SCH (22:00)
== END 2020-10-24 13:06 | disposition home or self-care (01) ==
LOC: ED 15:40 → MED SURG 20:48
PROVIDERS: ADMIT Family Medicine; ATTEND Family Medicine
DX: U07.1 COVID-19 (principal); J12.89 Other viral pneumonia; R51.9 Headache, unspecified; R05 Cough; R53.83 Other fatigue; Z79.899 Other long term (current) drug therapy
CPT/HCPCS: 36000; 36415; 71045; 71260; 80048; 80053; 83036; 83735; 84484; 85025; 85379; 93005; 93041; 93268; 94760; 94762; 96360; 96365; 96374; 99285; G0378; 96375; J1100; J1650; A9270-GY

== ENCOUNTER 2021-12-02 15:20 | Emergency (ER) | payer BC ==
[2021-12-02 15:34] VITALS: BP 174/111; PULSE 95; O2SAT 100
--- NOTE | 2021-12-02 16:44 | ERPHSYRPT ---
- History of Present Illness Time Seen by Provider: 12/02/21 15:39 Patient Subjective Stated Complaint: Pt slipped on ice and hit the back of his head Triage Nursing Assessment: Pt brought to the ER by his , hypertensive, rates pain as 11/05, pt slipped on ice and hit the back of his head, pt doesn't remember much about it and does not remember coming to the hospital, pt having a hard time remembering, pt unsure if he passed out or not, denies N&V, pt does have a large reddened/bruised area to the back of his head but no bleeding, lightheadedness, denies blood thinner use, pupils slow to react Physician History: 56-year-old male with history of hypertension, hyperlipidemia, diabetes mellitus presented to the ER after he slid on ice and fell backward, hitting his head, unsure about loss of consciousness. Patient does not remember how he fell and what happened immediately afterwards. He is complaining of some dizziness which he does have but almost 1 week. Denies any focal numbness tingling or weakness. Minimal headache in the parieto-occipital area with some bruising. No ENT bleed. No visual's symptoms, no difficulty speech or ambulation. No injury anywhere else. Occurred: just prior to arrival Severity: moderate Head Injury Location: occipital, parietal Method of Injury: fell Loss of Consciousness: unsure Associated Symptoms: denies symptoms Allergies/Adverse Reactions: No Known Drug Allergies Allergy (Verified 12/02/21 15:34) Home Medications: Atorvastatin Calcium 80 mg PO DAILY 10/23/20 [History] Canagliflozin [Invokana] 300 mg PO DAILY 10/23/20 [History] Cholecalciferol (Vitamin D3) [Vitamin D3] 2,000 unit PO DAILY 10/23/20 [History] Fenofibrate 160 mg PO DAILY 10/23/20 [History] Icosapent Ethyl [Vascepa] 4 gm PO DAILY 10/23/20 [History] Lisinopril 5 mg [Zestril 5 MG] 2.5 mg PO DAILY 10/23/20 [History] Meloxicam [Mobic] 15 mg PO DAILY 10/23/20 [History] Metformin HCl 500 mg [Glucophage 500 MG] 500 mg PO BID 12/29/20 [History] Travel Risk - International Travel Have you traveled outside of the country in past 3 weeks: No - Coronavirus Screening Are you exhibiting any of the following symptoms?: No Close contact with a COVID-19 positive Pt in past 14-21 Days: No - Vaccine Status Have you recieved a Covid-19 vaccination: Yes 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: [employer] - Review of Systems Constitutional: No Symptoms Eyes: No Symptoms Ears, Nose, & Throat: No Symptoms Respiratory: No Symptoms Cardiac: No Symptoms Abdominal/Gastrointestinal: No Symptoms Genitourinary Symptoms: No Symptoms Musculoskeletal: No Symptoms Skin: No Symptoms Neurological: Dizziness Psychological: No Symptoms Endocrine: No Symptoms Hematologic/Lymphatic: No Symptoms Immunological/Allergic: No Symptoms - Past Medical History Pertinent Past Medical History: Yes Neurological History: Peripheral Neuropathy ENT History: No Pertinent History Cardiac History: High Cholesterol, Hypertension Respiratory History: No Pertinent History Endocrine Medical History: Diabetes Type II Musculoskeletal History: Osteoarthritis GI Medical History: No Pertinent History History: No Pertinent History Psycho-Social History: No Pertinent History Male Reproductive Disorders: No Pertinent History Other Medical History: R SHOULDER ARTHROSCOPY IN 01/2021. - Past Surgical History Past Surgical History: No Neuro Surgical History: No Pertinent History Cardiac: No Pertinent History Respiratory: No Pertinent History Gastrointestinal: No Pertinent History Genitourinary: No Pertinent History Musculoskeletal: No Pertinent History Male Surgical History: No Pertinent History - Social History Smoking Status: Never smoker Exposure to second hand smoke: No Drug Use: none Patient Lives Alone: No - Nursing Vital Signs Nursing Vital Signs: Initial Vital Signs Temperature 96.8 F 12/02/21 15:26 Pulse Rate 95 H 12/02/21 15:26 Blood Pressure 174/111 12/02/21 15:26 O2 Sat by Pulse Oximetry 100 12/02/21 15:26 Pain Scale Pain Intensity 1 - Milton Coma Score Best Eye Response (Milton): (4) open spontaneously Best Verbal Response (Milton): (5) oriented Best Motor Response (Milton): (6) obeys commands Milton Total: 15 - Physical Exam General Appearance: no apparent distress, alert Head Injury: contusions, swelling, tenderness (Parieto-occipital area with minimal swelling/hematoma and minimal tenderness), No active bleeding, No flap, No lacerations, No raccoon eyes Eye Exam: bilateral eye: normal inspection, PERRL, EOMI ENT Exam: airway nml, No evidence of ENT injury, No dental injury Neck Exam: supple, trachea midline, full range of motion, normal alignment, normal inspection Cardiovascular/Respiratory Exam: chest non-tender, normal breath sounds, regular rate/rhythm Gastrointestinal/Abdominal Exam: soft, non tender Extremity Exam: non-tender, normal range of motion Mental Status Exam: alert, 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 x 3, 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 Exam: normal hearing, normal speech, PERRL, No facial asymmetry Coordination/Gait Exam: normal finger to nose, normal cerebellar function Motor/Sensory Exam: No positive Babinski's sign DTR Exam: bicep (R): 2+, bicep (L): 2+, knee (R): 2+, knee (L): 2+ Skin Exam: normal color SpO2 Interpretation: normal SpO2: 100 O2 Delivery: Room Air Ordered Tests: Active Orders 24 hr Category Date Time Status CERVICAL SPINE WO CONTRAST [CT] Stat Exams 12/02/21 16:01 Taken HEAD WITHOUT CONTRAST [CT] Stat Exams 12/02/21 15:57 Taken POCT GLUCOSE Stat Lab 12/02/21 15:48 Completed Lab/Rad Data: Laboratory Results 12/02/21 Range/Units 15:48 POC Glucometer 315 H (74 to 106) mg/dL - Progress Progress: improved Progress Note: 12/02/21 16:41 7 is evaluated for fall with 6-year-old head injury, questionable loss of consciousness and some amnesia. Patient has nonfocal neuro exam. Is not in any pain. CT head and cervical spine are negative for any acute trauma related findings. Patient on reevaluation feeling better and is able to recall most of the incident. Does have some dizziness for quite some time which is not any new. I believe patient has concussion, recommended observation at home and outpatient follow-up. Discussed signs symptoms of worsening needing return to ER which patient seems understanding. is also informed about the plan. Counseled pt/family regarding: lab results, diagnosis, need for follow-up, rad results - Departure Departure Disposition: Home Clinical Impression: Fall Concussion Qualifiers: Encounter type: initial encounter Condition: Stable Critical Care Time: No Referrals: CHAO PEARSON [Primary Care Provider] - Follow up/PCP as directed (Tomorrow for reevaluation) Instructions: Traumatic Brain Injury (DC), Contusion (DC) Additional Instructions: Stay with a responsible person for next 48 hours, frequent neuro checks. Follow head injury/concussion instructions and return to ER for any worsening. Take Tylenol as needed for headache. No ibuprofen/any NSAIDs for next 36 hours.
--- NOTE | 2021-12-02 19:39 | XRAY ---
Indication: Posterior head injury following fall. Loss of consciousness. Headache and dizziness. Multiple contiguous axial images obtained through the head without contrast. Comparison: None Ventriculosulcal pattern appears symmetric. No acute intracranial hemorrhage, abnormal extra-axial fluid collection, or mass effect. Fourth ventricle is midline without hydrocephalus. Rice-white matter differentiation preserved. Bony calvarium intact. Visualized paranasal sinuses and mastoid air cells are clear. Impression: Negative CT head without contrast exam. Comment: Preliminary interpretation made by [facility]. No critical discrepancy.
--- NOTE | 2021-12-02 19:42 | XRAY ---
Indication: Pain following fall. Loss of consciousness. Headache and dizziness. Multiple contiguous axial images obtained through the cervical spine. Sagittal and coronal reformatted images obtained. Comparison: None Axial images negative for acute fracture, suspicious bony lesions, or spinal canal stenosis. Facets are symmetric. Sagittal and coronal reformatted images demonstrates lordotic straightening, positional versus paraspinal spasm. Vertebral body heights/disc spaces maintained. No acute compression fracture, subluxation, or jumped facet. Normal appearing craniocervical junction. Visualized noncontrasted soft tissues including lung apices are unremarkable. Impression: Cervical lordotic straightening, positional versus paraspinal spasm. Remaining CT cervical spine is negative. Comment: Preliminary interpretation made by [facility]. No critical discrepancy.
== END 2021-12-02 16:59 | disposition home or self-care (01) ==
LOC: ED 15:20
DX: S09.90XA Unspecified injury of head, initial encounter (principal); W00.0XXA Fall on same level due to ice and snow, initial encounter; R51.9 Headache, unspecified; R42 Dizziness and giddiness; E78.5 Hyperlipidemia, unspecified; I10 Essential (primary) hypertension; E11.42 Type 2 diabetes mellitus with diabetic polyneuropathy; Z79.84 Long term (current) use of oral hypoglycemic drugs; Z79.899 Other long term (current) drug therapy
CPT/HCPCS: 70450; 72125; 82947; 99284

== ENCOUNTER 2025-08-22 10:20 | Day surgery (SDC) | payer BC ==
--- NOTE | 2025-08-21 10:02 | HP ---
HISTORY OF PRESENT ILLNESS: A 60-year-old with pain and swelling since March/April. No drainage in the pilonidal area. He was given a steroid trial by his primary with no improvement. PAST MEDICAL HISTORY: Hyperlipidemia, arthritis, type 2 diabetes. HOME MEDICATIONS: Tresiba, meloxicam, fenofibrate, atorvastatin, fish oil, Invokana, Janumet. ALLERGIES: No known drug allergies. PAST SURGICAL HISTORY: He had a rotator cuff bilaterally and vasectomy in the past. SOCIAL HISTORY: No smoking. Occasional alcohol use. FAMILY HISTORY: Pulmonary fibrosis, heart disease, diabetes. REVIEW OF SYSTEMS: Twelve systems reviewed. Pertinent for medical problems noted above. No chest pain or palpitations. All other systems negative or noncontributory as noted above. PHYSICAL EXAMINATION: VITAL SIGNS: Height 6 feet 5 inches, BMI 25.36. GENERAL: In no acute distress. HEENT: Sclerae nonicteric. Extraocular movements intact. NECK: No JVD. CHEST: Equal excursion, nonlabored breathing. CARDIOVASCULAR: Regular rate and rhythm. ABDOMEN: Soft. EXTREMITIES: No cyanosis or edema. NEUROLOGIC: Alert, moving all extremities symmetrically. PSYCHIATRIC: Appropriate mood and affect. SKIN: Dry. Pilonidal indurated area, small pit, no current drainage. ASSESSMENT: History of pilonidal cyst area disease, offered excision, possible flap closure, possible packing. Risks explained in detail but not limited to infection, risk of bleeding, risk of dehiscence, possibly requiring packing at a later date if closed primarily with flaps. Risk of persistent aches and pains up to 20% risk of recurrence; risk of need to pack 8 to 12 weeks, 5% take longer, 5% fail to heal or possibly need other treatments or referrals or procedures. Risk of anesthesia, DVT, PE, pneumonia, aches and pains but not limited to. He is agreeable to plan. We will proceed with outpatient excision of pilonidal cyst area disease, possible flap closure, possible packing pending operative findings. Otherwise, continue medications for hyperlipidemia and diabetes.
[~2025-08-22 10:20] MED LIST: EXPAREL 133 MG/10 ML VIAL IJ ONE; Lactated Ringers 1,000 ML IV ONE; Sensorcaine 0.25% 10 ML ONE
[2025-08-22] MEDS ORDERED: TYLENOL EXTRA STRENGTH 500 MG ONE (10:31)
[2025-08-22] MEDS ORDERED: NEURONTIN ONE (10:31)
[2025-08-22] MEDS ORDERED: celeBREX 100 MG ONE (10:31)
[2025-08-22] MEDS ORDERED: Decadron 4 MG ONE (10:32)
[2025-08-22] MEDS ORDERED: CLINDAMYCIN-D5W 900 MG/50 ML*** 900 MG/50 ML BAG IV ONE (10:34)
[2025-08-22] MEDS: TYLENOL EXTRA STRENGTH 500 MG PO ONE (10:37)
[2025-08-22] MEDS: NEURONTIN PO ONE (10:37)
[2025-08-22] MEDS: celeBREX 100 MG PO ONE (10:37)
[2025-08-22] MEDS: Decadron 4 MG PO ONE (10:37)
[2025-08-22] MEDS: CLINDAMYCIN-D5W 900 MG/50 ML*** 900 MG/50 ML BAG IV SCH (10:38)
[2025-08-22] MEDS: Lactated Ringers 1,000 ML IV SCH (10:38)
[2025-08-22 11:18] LABS: Calcium 8.8 mg/dL (8.4-10.2); Carbon Dioxide 22.0 mmol/L (22-30); Creatinine 1 0.69 mg/dL (0.66-1.25); EST GLOMERULAR FILTRATION RATE 107.3 ML/MIN; Glucose 171.0 mg/dL (74-106); Potassium 4.0 mmol/L (3.5-5.1)
[2025-08-22] MEDS ORDERED: ROCURONIUM BROMIDE IV ONE (11:53)
[2025-08-22] MEDS ORDERED: propofoL IV ONE (11:54)
[2025-08-22] MEDS ORDERED: SUBLIMAZE 100 MCG/2 ML ONE (11:54)
[2025-08-22] MEDS ORDERED: Versed 2 MG/2 ML Injection ONE (11:54)
[2025-08-22] MEDS ORDERED: BRIDION 200MG/2ML IV ONE (12:29)
[2025-08-22 13:29] VITALS: PULSE 76; TEMP 96.8
[2025-08-22 13:40] VITALS: BP 133/84; RESP 19; O2SAT 95
--- NOTE | 2025-08-23 16:30 | OP ---
SURGERY DATE/TIME: 08/22/2025 [id number] PREOPERATIVE DIAGNOSIS: History of pilonidal cyst swelling, question ruptured cyst, needs excision. POSTOPERATIVE DIAGNOSIS: PROCEDURE: Excisional biopsy pilonidal area ruptured cyst site with closure of local advancement flaps (approximately 5 sq cm flap coverage). SURGEON: Rusty Perez MD ANESTHESIA: General. ESTIMATED BLOOD LOSS: Minimal. INDICATIONS: Consent obtained. DESCRIPTION OF PROCEDURE AND FINDINGS: Patient was taken to the operating room. General anesthesia induced, was placed in prone position, prepped and draped in usual sterile fashion. After official time-out and no disagreement with planned procedure, marked out around this dimple pit area in the pilonidal area where he had had pain and swelling. Dissection was carried down underneath this area down to the underlying fascia, was passed off for pathology. The area popped widely open but it was felt that it was clean enough warrant try the closure flap coverage. The local advancement was carefully advanced back to the midline with interrupted 2-0 Vicryl. Skin was closed with 4-0 Vicryl in running subcuticular fashion then some interrupted 3-0 Prolene to reinforce the area. The area of flap coverage was approximately 5 sq cm. Good hemostasis noted. The staff provided Exparel. It was injected circumferentially around the area field pattern. Patient tolerated the procedure well. There were no immediate complications.
== END 2025-08-22 13:58 | disposition home or self-care (01) ==
LOC: SDC 10:20
PROVIDERS: ATTEND Surgery
DX: L05.91 Pilonidal cyst without abscess (principal); E78.5 Hyperlipidemia, unspecified